=== PATIENT | male | born 1940 | race Caucasian/White ===

== ENCOUNTER 2017-09-19 12:00 | Emergency (ER) | payer OTHER, BC ==
[~2017-09-19] VITALS: Ht 177.8 cm; Wt 97.0 kg
[2017-09-19 16:21] LABS: HEMATOCRIT 38.4 % (38.0-50.0); HEMOGLOBIN 13.4 G/DL (12.5-16.6); MCH 33.9 PG (29.0-34.0); MCHC 34.9 G/DL (30.0-36.0); PLATELET COUNT 177 K/uL (156-360); RBC DIS.WIDTH-CV 12.1 % (11.8-14.6); RBC DIS.WIDTH-SD 43.5 % (39-53); RED BLOOD COUNT 3.95 M/uL (4.00-5.50); WHITE BLOOD COUNT 5.2 K/uL (4.1-10.2)
[2017-09-19 16:23] LABS: MCV 97.2 FL (86-99)
[2017-09-19 16:35] LABS: CHLORIDE 106 mEq/L (99-109); POTASSIUM 4.6 mEq/L (3.7-5.4); SODIUM 141 mEq/L (136-147)
[2017-09-19 16:36] LABS: GLUCOSE 127 mg/dL (70-99)
[2017-09-19 16:40] LABS: CREATININE 0.9 mg/dL (0.6-1.3); GFR ESTIMATE (CALCULATED) > 59 mL/min/ (58.99-99999)
[2017-09-19 16:41] LABS: UREA NITROGEN (BUN) 12 mg/dL (9-23)
[2017-09-19 16:43] LABS: TROP-I INTERPRETATION NEGATIVE; TROPONIN-I < 0.01 ng/mL (0.0-0.30)
[2017-09-19] MEDS ORDERED: FLONASE16 G1 BOTH NARES (17:04)
[2017-09-19 18:09] VITALS: BP 142/96
== END 2017-09-19 18:10 | disposition home or self-care (01) ==
LOC: EME 12:00
PROVIDERS: Nurse Practitioner Family
DX: R51 Headache (principal); E78.00 Pure hypercholesterolemia, unspecified; J32.2 Chronic ethmoidal sinusitis; J32.1 Chronic frontal sinusitis; J32.3 Chronic sphenoidal sinusitis; I10 Essential (primary) hypertension; Z87.891 Personal history of nicotine dependence
CPT/HCPCS: 70450; 71046; 80048; 84484; 85027; 99281; 99284